=== PATIENT | male | born 1960 | race Caucasian/White ===

== ENCOUNTER 2022-05-19 13:15 | Emergency (ER) | payer OTHER ==
[~2022-05-19] VITALS: Ht 165.1 cm; Wt 79.8 kg
[2022-05-19 13:23] VITALS: BP 165/96
[2022-05-19 14:29] LABS: BASOPHILS # (AUTO) 0.1 K/uL (0.00-0.22); BASOPHILS % (AUTO) 1.2 % (0.0-2.0); EOSINOPHILS # (AUTO) 0.1 K/uL (0-0.4); EOSINOPHILS % (AUTO) 1.3 % (0.0-4.0); HEMATOCRIT 40.5 % (36-52); HEMOGLOBIN 13.9 g/dL (12.0-18.0); LYMPHOCYTES # (AUTO) 1.9 K/uL (2.0-11.5); MEAN CORPUSCULAR HEMOGLOBIN 33 pg (27-31); MEAN CORPUSCULAR HGB CONC 34 g/dL (33-37); MEAN CORPUSCULAR VOLUME 95.2 fL (80-94); MONOCYTES # (AUTO) 0.5 K/uL (0.8-1.0); MONOCYTES % (AUTO) 7.7 % (1.7-9.3); NEUTROPHILS # (AUTO) 3.9 K/uL (1.8-7.7); NEUTROPHILS % (AUTO) 59.8 % (42.2-75.2); PLATELET COUNT (AUTO) 193 K/uL (140-450); RED BLOOD CELL COUNT(AUTO) 4.26 MIL/uL (4.20-6.10); RED CELL DISTRIBUTION WIDTH 13.5 % (11.6-13.7); WHITE BLOOD COUNT (AUTO) 6.5 K/uL (4.8-10.8)
--- NOTE | 2022-05-19 14:30 | NUR ---
61 Y/O MALE C/O OF HIGH BP, WAS SEEN IN [facility] FOR BP 191/96 DISCHARGE BP, BP IN TRIAGE 165/96. PER PT WAS NOT GIVEN ANY MEDICATION FOR BP, NOTED SUBCONJUNCTIVAL HEMORRHAGE OF LEFT EYE AND DE LA PAZ IN THE BACK. NKA PMH: HTN
--- NOTE | 2022-05-19 14:31 | NUR ---
BALAJI KING AT PT SIDE FOR EVAL
[2022-05-19 14:40] LABS: ALBUMIN 3.9 g/dL (3.4-5.0); ANION GAP 11.2 (8-16); CARBON DIOXIDE 26.6 mmol/L (21-32); CREATININE 0.9 mg/dL (0.6-1.3); POTASSIUM 3.8 mmol/L (3.5-5.1); TOTAL BILIRUBIN 0.4 mg/dL (0.0-1.0)
[2022-05-19] MEDS ORDERED: OLOP2.5D7 LEFT EYE (14:49)
[2022-05-19 14:58] VITALS: BP 168/87
--- NOTE | 2022-05-19 14:59 | NUR ---
Patient discharged with v/s stable. Written and verbal after care instructions given and explained. Patient alert, oriented and verbalized understanding of instructions. Ambulatory with steady gait. All questions addressed prior to discharge. ID band removed. Patient advised to follow up with PMD. Rx of PATADAY 2.5 ML given. Patient educated on indication of medication including possible reaction and side effects. Opportunity to ask questions provided and answered.
== END 2022-05-19 14:59 | disposition home or self-care (01) ==
LOC: MED 13:15
DX: H57.12 Ocular pain, left eye (principal); I10 Essential (primary) hypertension; Z79.899 Other long term (current) drug therapy
CPT/HCPCS: 36415; 80053; 85025; 99283